=== PATIENT | female | born 1950 | race Caucasian/White ===

== ENCOUNTER 2017-03-06 13:21 | Day surgery (SDC) | payer MEDICARE, OTHER ==
[~2017-03-06 13:21] MED LIST: BACTRIM DS TAB1 EAC2 PO; CALCIUM; CYMBALTA30 M1 PO; LAMICTAL100 M2 PO; PENTASA500 MG/CAP PO; VITAMIN D5000 UNI2; ZOCOR40 M1 PO
== END 2017-03-06 18:55 ==
LOC: SRG 13:21 → SHSB 13:22 → ORE 16:05 → PACU 17:12 → SHSB 17:40
PROC: 07B10ZX Excision of Right Neck Lymphatic, Open Approach, Diagnostic (ICD-10-PCS; principal; 2017-03-06)
DX: C82.21 Follicular lymphoma grade III, unspecified, lymph nodes of head, face, and neck (principal); E78.5 Hyperlipidemia, unspecified; F32.9 Major depressive disorder, single episode, unspecified; Z79.899 Other long term (current) drug therapy; Z88.5 Allergy status to narcotic agent; Z87.440 Personal history of urinary (tract) infections; Z90.49 Acquired absence of other specified parts of digestive tract; Z90.89 Acquired absence of other organs; Z98.890 Other specified postprocedural states